=== PATIENT | male | born 1950 | race African-American/Black ===

== ENCOUNTER 2020-04-02 21:47 | Emergency (ER) | payer OTHER ==
[~2020-04-02] VITALS: Ht 177.8 cm; Wt 63.5 kg
[2020-04-02 22:41] LABS: ABSOLUTE EOSINOPHILS 0.2 thou/uL (0.0-0.7); ABSOLUTE LYMPHOCYTES 1.5 thou/uL (0.8-5.3); ABSOLUTE MONOCYTES 0.3 thou/uL (0.0-1.2); ABSOLUTE NEUTROPHILS 1.4 thou/uL (1.6-8.1); BASOPHILS 0.9 %; EOSINOPHILS 5.7 %; HEMOGLOBIN 15.7 gm/dL (14.0-18.0); LYMPHOCYTES 44.5 %; MCH 28.3 pg (26.0-34.0); MCHC 32.7 g/dL (28.0-37.0); MCV 86.5 fL (80.0-100.0); MONOCYTES 9.4 %; MPV 7.3 fl. (7.2-11.1); NUCLEATED RBCS 0 /100WBC; PLATELET COUNT* 254 thou/uL (150-400); POLYS 39.5 %; RBC 5.55 mil/uL (4.50-6.00); RDW-CV 14.2 % (10.5-14.5); WBC 3.5 thou/uL (4.0-11.0)
[2020-04-02 22:51] LABS: CALCIUM 8.5 mg/dL (8.5-10.1); CREATININE 0.9 mg/dL (0.6-1.3); POTASSIUM 3.9 mmol/L (3.5-5.1)
[2020-04-02 22:53] LABS: APTT 30.2 Seconds (25.0-31.3); PROTIME 10.9 Seconds (9.20-11.50)
[2020-04-02 22:55] LABS: ALBUMIN 3.6 g/dL (3.4-5.0); TOTAL BILIRUBIN 0.8 mg/dL (<0.1-1.0)
[2020-04-03] MEDS ORDERED: HYDROCHLOROTHIA25 M2 PO (00:03)
[2020-04-03] MEDS ORDERED: ALENDRONATE SOD10 MG PO (00:11)
[2020-04-03 01:07] VITALS: BP 167/90
--- NOTE | 2020-04-03 15:32 | EKG ---
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 : 1950 Requested By: Christy Tadeo Order Number: [id number] MD: Bonifacio Duarte Measurements Intervals [place] Rate: 78 P: 74 [place]: 166 QRS: -54 QRSD: 100 T: 63 QT: 414 QTc: 472 Interpretive Statements Sinus arrhythmia Multiple ventricular premature complexes Probable left atrial enlargement Left anterior fascicular block RSR' in V1 or V2, right VCD Left ventricular hypertrophy No previous ECG available for comparison Electronically Signed On 04-03-2020 15:32:05 TELEVISION ENGINEERING TEACHER by Bonifacio Duarte [email or web address] <ELECTRONICALLY SIGNED> By: Bonifacio Duarte MD, [facility] 04/03/20 1532 34 34 Bonifacio Duarte MD, [facility] /EPI
== END 2020-04-03 01:08 | disposition home or self-care (01) ==
LOC: M.ERS 21:47
PROVIDERS: Personal Emergency Response Attendant
DX: I10 Essential (primary) hypertension (principal); R74.8 Abnormal levels of other serum enzymes; M88.88 Osteitis deformans of other bones

== ENCOUNTER 2020-05-09 12:44 | Emergency (ER) | payer OTHER ==
[~2020-05-09] VITALS: Ht 177.8 cm; Wt 63.5 kg
[~2020-05-09 12:44] MED LIST: ALENDRONATE SOD10 MG PO; HYDROCHLOROTHIA25 M2 PO
[2020-05-09 13:12] LABS: ABSOLUTE EOSINOPHILS 0.1 thou/uL (0.0-0.7); ABSOLUTE LYMPHOCYTES 1.2 thou/uL (0.8-5.3); ABSOLUTE MONOCYTES 0.2 thou/uL (0.0-1.2); BASOPHILS 0.9 %; EOSINOPHILS 3.2 %; HEMOGLOBIN 14.9 gm/dL (14.0-18.0); LYMPHOCYTES 33.3 %; MCH 28.2 pg (26.0-34.0); MCHC 32.5 g/dL (28.0-37.0); MCV 86.7 fL (80.0-100.0); MONOCYTES 6.9 %; NUCLEATED RBCS 0 /100WBC; PLATELET COUNT* 249 thou/uL (150-400); POLYS 55.7 %; RBC 5.31 mil/uL (4.50-6.00); RDW-CV 14.1 % (10.5-14.5); WBC 3.5 thou/uL (4.0-11.0)
[2020-05-09 13:21] LABS: CALCIUM 8.4 mg/dL (8.5-10.1); CREATININE 0.9 mg/dL (0.6-1.3)
[2020-05-09 13:26] LABS: ALBUMIN 3.6 g/dL (3.4-5.0); TOTAL BILIRUBIN 0.8 mg/dL (<0.1-1.0); TOTAL PROTEIN 7.3 g/dL (6.4-8.2)
[2020-05-09 14:05] LABS: URINE BILIRUBIN NEGATIVE (Negative); URINE BLOOD 1+ (Negative); URINE CLARITY CLEAR; URINE COLOR YELLOW; URINE GLUCOSE-RANDOM NEGATIVE (Negative); URINE KETONES NEGATIVE (Negative); URINE LEUKOCYTES-REFLEX NEGATIVE (Negative); URINE NITRITE-REFLEX NEGATIVE (Negative); URINE PROTEIN NEGATIVE (Negative); URINE SPECIFIC GRAVITY 1.015 (1.005-1.030); URINE UROBILINOGEN 0.2 E.U./dl (0.2-1.0)
[2020-05-09 14:25] LABS: BACTERIA-REFLEX None Seen /HPF (None Seen); MUCUS None Seen strn/LPF (None Seen); SQUAMOUS NONE SEEN /LPF (0-3); URINE RBC 0-2 Rare /HPF (0-2); URINE WBC-REFLEX None Seen /HPF (0-5)
[2020-05-09 14:26] LABS: CASTS None Seen /LPF (None Seen); CRYSTALS None Seen /LPF (None Seen)
[2020-05-09] MEDS ORDERED: FLOMAX0.4 MG PO (14:47)
[2020-05-09] MEDS ORDERED: APAP W/CODEINE1 TA2 PO (14:47)
[2020-05-09 14:58] VITALS: BP 126/96
--- NOTE | 2020-05-09 16:19 | EKG ---
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: : 1950 Requested By: Selene Millan Order Number: [id number] MD: Henok Avendano Measurements Intervals [place] Rate: 74 P: 75 SD: 180 QRS: -50 QRSD: 100 T: 67 QT: 403 QTc: 448 Interpretive Statements Sinus rhythm Left anterior fascicular block RSR' in V1 or V2, right VCD or RVH ST elevation suggests early repolarization Compared to ECG 04/02/2020 22:35:54 Ventricular premature complex(es) no longer present Electronically Signed On 05-09-2020 16:19:41 CDT by Henok Avendano [email or web address] <ELECTRONICALLY SIGNED> By: Henok Avendano MD, [facility] 05/09/20 1619 1312 131 Henok Avendano MD, [facility] /EPI
== END 2020-05-09 14:58 | disposition home or self-care (01) ==
LOC: M.ERS 12:44
PROVIDERS: Physician Assistant
DX: N13.2 Hydronephrosis with renal and ureteral calculous obstruction (principal); I10 Essential (primary) hypertension; Z79.899 Other long term (current) drug therapy

== ENCOUNTER 2020-06-08 21:54 | Emergency (ER) | payer OTHER ==
[~2020-06-08] VITALS: Ht 177.8 cm; Wt 63.5 kg
[~2020-06-08 21:54] MED LIST changes: +APAP W/CODEINE1 TA2 PO; +FLOMAX0.4 MG PO
[2020-06-08 22:55] LABS: ABSOLUTE EOSINOPHILS 0.2 thou/uL (0.0-0.7); ABSOLUTE LYMPHOCYTES 1.7 thou/uL (0.8-5.3); ABSOLUTE MONOCYTES 0.5 thou/uL (0.0-1.2); ABSOLUTE NEUTROPHILS 2.5 thou/uL (1.6-8.1); EOSINOPHILS 4.6 %; HEMATOCRIT 45.7 % (42.0-52.0); HEMOGLOBIN 14.7 gm/dL (14.0-18.0); LYMPHOCYTES 34.6 %; MCH 27.9 pg (26.0-34.0); MCHC 32.1 g/dL (28.0-37.0); MCV 86.9 fL (80.0-100.0); MONOCYTES 9.6 %; MPV 7.3 fl. (7.2-11.1); NUCLEATED RBCS 0 /100WBC; PLATELET COUNT* 217 thou/uL (150-400); POLYS 50.2 %; RBC 5.25 mil/uL (4.50-6.00); RDW-CV 14.3 % (10.5-14.5); WBC 4.9 thou/uL (4.0-11.0)
[2020-06-08 23:02] LABS: CALCIUM 8.6 mg/dL (8.5-10.1); POTASSIUM 4.4 mmol/L (3.5-5.1)
[2020-06-08 23:05] LABS: APTT 29.3 Seconds (25.0-31.3); PROTIME 10.5 Seconds (9.20-11.50)
[2020-06-08 23:13] LABS: ALBUMIN 3.5 g/dL (3.4-5.0); TOTAL BILIRUBIN 0.8 mg/dL (<0.1-1.0); TOTAL PROTEIN 7.1 g/dL (6.4-8.2)
[2020-06-09 00:30] LABS: URINE BILIRUBIN NEGATIVE (Negative); URINE BLOOD TRACE (Negative); URINE CLARITY CLEAR; URINE COLOR YELLOW; URINE GLUCOSE-RANDOM NEGATIVE (Negative); URINE KETONES NEGATIVE (Negative); URINE LEUKOCYTES-REFLEX NEGATIVE (Negative); URINE NITRITE-REFLEX NEGATIVE (Negative); URINE PROTEIN NEGATIVE (Negative); URINE UROBILINOGEN 0.2 E.U./dl (0.2-1.0)
[2020-06-09 02:30] VITALS: BP 123/78
--- NOTE | 2020-06-09 09:53 | EKG ---
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[place] : 1950 Requested By: Christy Tadeo Order Number: [id number] MD: Reji Salvador Measurements Intervals [place] Rate: 64 P: 59 [place]: 189 QRS: -49 QRSD: 100 T: 30 QT: 425 QTc: 439 Interpretive Statements Sinus rhythm Atrial premature complex Probable left atrial enlargement Left anterior fascicular block RSR' in V1 or V2, right VCD or RVH Left ventricular hypertrophy Compared to ECG 05/09/2020 13:12:51 Atrial premature complex(es) now present Left ventricular hypertrophy now present Electronically Signed On 06-09-2020 9:53:12 CDT by Reji Salvador [email or web address] <ELECTRONICALLY SIGNED> By: Rj Salvador MD, [facility] 06/09/20 0953 18 18 Rj Salvador MD, [facility] /EPI
--- NOTE | 2020-06-09 09:54 | EKG ---
[place] [address] ELECTROCARDIOGRAM REPORT Name: BA DUEÑAS Room: [facility]#: [id number] Admission: 06/08/20 Attend Phys: Discharge: 06/09/20 Date of : 52 Date of Service: 06/09/20121 Report #: [id number] THIS REPORT FOR: //name// [facility] ED Test Date: 2020-06-09 Test Time: 01:22:01 Pat Name: BA DUEÑAS Department: Room: Gender: Clinical Partner: [place] : 1950 Requested By: Christy Tadeo Order Number: [id number] MD: Reji Salvador Measurements Intervals [place] Rate: 61 P: 37 [place]: 199 QRS: -47 QRSD: 100 T: 19 QT: 447 QTc: 451 Interpretive Statements Sinus rhythm Probable left atrial enlargement Left anterior fascicular block RSR' in V1 or V2, right VCD or RVH Left ventricular hypertrophy ST elevation suggests acute pericarditis Compared to ECG 06/08/2020 22:19:01 Atrial premature complex(es) no longer present Myocardial infarct finding no longer present ST (T wave) deviation still present Electronically Signed On 06-09-2020 9:53:48 CDT by Reji Salvador [email or web address] <ELECTRONICALLY SIGNED> By: Rj Salvador MD, [facility] 06/09/20 0953 1 1 Rj Salvador MD, [facility] /EPI
== END 2020-06-09 02:30 | disposition home or self-care (01) ==
LOC: M.ERS 21:54
PROVIDERS: Personal Emergency Response Attendant
DX: N23 Unspecified renal colic (principal); N20.1 Calculus of ureter; I10 Essential (primary) hypertension; Z79.899 Other long term (current) drug therapy

== ENCOUNTER 2020-11-29 07:04 | Emergency (ER) | payer OTHER ==
[~2020-11-29] VITALS: Ht 177.8 cm; Wt 63.5 kg
[2020-11-29 07:49] LABS: ABSOLUTE BASOPHILS 0.1 thou/uL (0.0-0.2); ABSOLUTE EOSINOPHILS 0.1 thou/uL (0.0-0.7); ABSOLUTE LYMPHOCYTES 1.1 thou/uL (0.8-5.3); ABSOLUTE MONOCYTES 0.6 thou/uL (0.0-1.2); ABSOLUTE NEUTROPHILS 4.2 thou/uL (1.6-8.1); BASOPHILS 0.9 %; EOSINOPHILS 2.1 %; HEMATOCRIT 45.5 % (42.0-52.0); MCH 28.6 pg (26.0-34.0); MCV 86.5 fL (80.0-100.0); MONOCYTES 9.1 %; MPV 7.2 fl. (7.2-11.1); NUCLEATED RBCS 0 /100WBC; PLATELET COUNT* 259 thou/uL (150-400); POLYS 69.9 %; RBC 5.25 mil/uL (4.50-6.00); RDW-CV 14.8 % (10.5-14.5); WBC 6.1 thou/uL (4.0-11.0)
[2020-11-29 07:57] LABS: CALCIUM 8.4 mg/dL (8.5-10.1); POTASSIUM 3.5 mmol/L (3.5-5.1)
[2020-11-29 08:02] LABS: ALBUMIN 3.3 g/dL (3.4-5.0); TOTAL BILIRUBIN 0.5 mg/dL (<0.1-1.0); TOTAL PROTEIN 7.6 g/dL (6.4-8.2)
[2020-11-29 09:10] VITALS: BP 121/76
--- NOTE | 2020-11-29 11:17 | EKG ---
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1950 Requested By: Tiago Ly Order Number: [id number] MD: Henok Avendano Measurements Intervals [place] Rate: 82 P: 75 [place]: 163 QRS: -54 QRSD: 98 T: 52 QT: 388 QTc: 453 Interpretive Statements Sinus rhythm Ventricular premature complex Left anterior fascicular block RSR' in V1 or V2, right VCD or RVH Compared to ECG 06/09/2020 01:22:01 Ventricular premature complex(es) now present Left ventricular hypertrophy no longer present ST (T wave) deviation still present Electronically Signed On 11-29-2020 11:17:31 CDT by Henok Avendano [email or web address] <ELECTRONICALLY SIGNED> By: Henok Avendano MD, [facility] 11/29/20 1117 3 3 Henok Avendano MD, [facility] /EPI
== END 2020-11-29 09:10 | disposition home or self-care (01) ==
LOC: M.ERS 07:04
PROVIDERS: Family Medicine
DX: S40.211A Abrasion of right shoulder, initial encounter (principal); R55 Syncope and collapse; I10 Essential (primary) hypertension; W18.11XA Fall from or off toilet without subsequent striking against object, initial encounter; Y93.89 Activity, other specified; Y92.89 Other specified places as the place of occurrence of the external cause; Y99.8 Other external cause status